=== PATIENT | female | born 1970 | race Caucasian/White ===

== ENCOUNTER 2016-08-12 04:53 | Emergency (ER) | payer OTHER ==
[~2016-08-12] VITALS: Ht 162.6 cm; Wt 86.4 kg
[~2016-08-12 04:53] MED LIST: IBUP-2070 PO; PSEU60TA PO
[2016-08-12] MEDS ORDERED: MECLIZINE HCL 25 MG TABLET PO ONE (06:30)
[2016-08-12 07:23] VITALS: BP 143/82
== END 2016-08-12 07:43 | disposition home or self-care (01) ==
LOC: EMS 04:55
DX: H81.393 Other peripheral vertigo, bilateral (principal)
CPT/HCPCS: 70450; 99284

== ENCOUNTER 2017-10-30 01:20 | Emergency (ER) | payer OTHER ==
[~2017-10-30] VITALS: Ht 162.6 cm; Wt 97.7 kg
[2017-10-30] MEDS ORDERED: SIMV-259 PO (01:52)
[2017-10-30] MEDS ORDERED: FERR236T3 PO (01:52)
[2017-10-30 03:20] LABS: BASOPHILS % (AUTO) 0.3 % (0.0-2.0); EOSINOPHILS % (AUTO) 1.5 % (1.0-6.0); HEMATOCRIT 36.8 % (36-46); HEMOGLOBIN 12.1 g/dL (12.0-16.0); LYMPHOCYTES # (AUTO) 1.3 K/uL (1.0-4.8); LYMPHOCYTES % (AUTO) 16.7 % (22.0-44.0); MEAN CORPUSCULAR HEMOGLOBIN 25.4 pg (26.0-34.0); MEAN CORPUSCULAR VOLUME 77 fL (80-100); MONOCYTES # (AUTO) 0.4 K/uL (0.1-1.0); MONOCYTES % (AUTO) 5.3 % (2.0-9.0); NEUTROPHILS % (AUTO) 76.2 % (40.0-70.0); PLATELET COUNT (AUTO) 335 K/uL (150-450); RED BLOOD CELL COUNT(AUTO) 4.78 MIL/uL (4.00-5.20); RED CELL DISTRIBUTION WIDTH 27.6 % (11.5-14.5)
[2017-10-30] MEDS ORDERED: LORazepam 2 MG/ML VIAL IM ONE (03:30)
[2017-10-30 03:32] LABS: ANION GAP 6 mmol/L (8-16); CALCIUM, TOTAL 8.3 mg/dL (8.8-10.5); CARBON DIOXIDE 25 mmol/L (22-29); CHLORIDE 106 mmol/L (98-107); CREATININE 0.82 mg/dL (0.60-1.30); GLOMERULAR FILTR. RATE CALC > 60 mL/min (>60); GLUCOSE,RANDOM 117 mg/dL (70-110); POTASSIUM 4.1 mmol/L (3.5-5.1); SODIUM SERUM 137 mmol/L (136-145); UREA NITROGEN, BLOOD 6 mg/dL (7-18)
[2017-10-30 03:36] LABS: ALANINE AMINOTRANSFERASE 31 U/L (12-78); ALBUMIN 3.4 g/dL (3.4-5.0); ALKALINE PHOSPHATASE 93 U/L (46-116); ASPARTATE AMINOTRANSFERASE 20 U/L (15-37); BILIRUBIN,TOTAL 0.2 mg/dL (0.1-1.0); TOTAL PROTEIN, SERUM 7.3 g/dL (6.4-8.2)
[2017-10-30 04:47] VITALS: BP 133/79
== END 2017-10-30 04:49 | disposition home or self-care (01) ==
LOC: EMS 01:21
DX: F41.9 Anxiety disorder, unspecified (principal); R42 Dizziness and giddiness; R06.02 Shortness of breath; R20.0 Anesthesia of skin; E78.00 Pure hypercholesterolemia, unspecified
CPT/HCPCS: 36415; 80053; 84484; 84703; 85025; 93005; 96372; 99285; J2060